=== PATIENT | male | born 2000 | race Two or more races ===

== ENCOUNTER 2023-09-28 11:31 | Inpatient (IN) | payer OTHER ==
[~2023-09-28] VITALS: Ht 198.1 cm; Wt 79.4 kg
--- NOTE | 2023-09-28 11:49 | NUR ---
SE RECIBE PTE ALERTA Y ORIENTADO X3. REFIERE FIEBRE HACE 4 HONG. PTE SE REALIZO CBC EN EL SYD DE HOY DONDE PRESENTA PLAQUETAS Y GLOBULOS BLANCOS BAJOS. SE MIDE SV Y SE UBICA
[2023-09-28] MEDS ORDERED: 0.9 % SODIUM CHLORIDE 1,000 ML IV STA (12:27)
[2023-09-28] MEDS ORDERED: METHYLPREDNISOLONE SOD SUCC 125 MG VIAL IV STA (12:27)
[2023-09-28] MEDS ORDERED: METHYLPREDNISOLONE SOD SUCC 125 MG VIAL ONE (12:44)
--- NOTE | 2023-09-28 12:46 | NUR ---
PTE EVALUADO POR EL DR. COLEMAN. RN MOHR ORIENTA SOBRE TRATAMIENTO, CANALIZA, CASSIA MUESTRAS DE LAB Y ADMINISTRA MEDICAMENTO EMBER ORDEN MEDICA BAJO MEDIDAS ASEPTICAS. PENDIENTE CONSULTA CON DR. JULIETA XAVIER.
[2023-09-28 13:22] LABS: HEMATOCRIT 41.1 % (39.0-48.0); HEMOGLOBIN 14.7 g/dL (13-16.00); MEAN CELL VOLUME 85.3 fL (80.0-100.00); MEAN CORPUSCULAR HEMOGLOBIN 30.5 pg (27.00-32.0); MEAN CORPUSCULAR HGB CONC 35.7 g/dl (32.0-36.0); RED BLOOD COUNT 4.81 M/uL (4.00-6.00); RED CELL DISTRIBUTION WIDTH 12.9 % (11.5-14.5)
[2023-09-28 13:26] LABS: PLATELET COUNT 84 K/uL (150-450)
[2023-09-28 13:32] LABS: INR 1.23; PARTIAL THROMBOPLASTIN TIME 34.6 SECONDS (22.0-34.0); PROTHROMBIN TIME 12.7 SECONDS (9.0-11.5)
[2023-09-28 13:34] LABS: CREATININE SERUM 1.27 mg/dL (0.70-1.30); GFR 70.28; POTASSIUM 3.83 mEq/L (3.5-5.1)
--- NOTE | 2023-09-28 15:32 | NUR ---
SE RECIBE PTE ALERTA Y ORIENTADO X3 EN OBS #7 PENDIENTE A CONSULTA CON MEDICINA INTERNA. VENOPUNCION PATENTE BAJANDO IV FLUIDS POR REGULADOR.
[2023-09-28 16:29] LABS: PH,URINE 6.5 (5.0-8.0); URINE APPEARANCE Clear; URINE BILIRRUBIN Negative (NEGATIVE); URINE BLOOD Negative; URINE COLOR Yellow; URINE GLUCOSE Negative (NEGATIVE); URINE LEUKOCYTE Negative; URINE NITRATE Negative; URINE PROTEIN Negative (NEGATIVE); URINE UROBILINOGEN 0.2 E.U./dl
[2023-09-28 16:30] LABS: URINE EPITHELIAL CELLS 2.6 uL (0.0-38.8); URINE RBC 3.6 uL (0.0-20.8)
[2023-09-28 16:35] LABS: URINE BACTERIA 2.5 uL (0.0-1933); URINE WBC 1.3 uL (0.0-23.2)
[2023-09-28] MEDS ORDERED: METHYLPREDNISOLONE SOD SUCC 40 MG VIAL IV SCH (19:43)
[2023-09-28] MEDS ORDERED: AZITHROMYCIN 500 MG in 0.9 % SODIUM CHLORIDE 250 ML IV SCH (19:43)
[2023-09-28] MEDS ORDERED: LORATADINE 10 MG TABLET PO SCH (19:44)
[2023-09-28] MEDS ORDERED: ACETAMINOPHEN 500 MG GEL..CAP PO PRN (19:45)
[2023-09-28] MEDS ORDERED: 0.9 % SODIUM CHLORIDE 1,000 ML IV SCH (19:45)
[2023-09-28] MEDS ORDERED: MEPERIDINE HCL/PF 25 MG/ML VIAL IM PRN (19:45)
[2023-09-28] MEDS ORDERED: ONDANSETRON HCL 4 MG in 0.9 % SODIUM CHLORIDE 50 ML IV PRN (19:45)
[2023-09-28] MEDS ORDERED: METHYLPREDNISOLONE SOD SUCC 40 MG VIAL ONE (20:30)
[2023-09-28] MEDS ORDERED: AZITHROMYCIN 500 MG VIAL IV ONE ×2 (20:31→20:50)
[2023-09-28] MEDS ORDERED: FAMOTIDINE/PF 20 MG in 0.9 % SODIUM CHLORIDE 8 ML IV PUSH SCH (21:00)
[2023-09-29 08:35] LABS: HEMATOCRIT 40.8 % (39.0-48.0); HEMOGLOBIN 14.5 g/dL (13-16.00); MEAN CELL VOLUME 85.2 fL (80.0-100.00); MEAN CORPUSCULAR HEMOGLOBIN 30.3 pg (27.00-32.0); MEAN CORPUSCULAR HGB CONC 35.6 g/dl (32.0-36.0); RED BLOOD COUNT 4.79 M/uL (4.00-6.00); RED CELL DISTRIBUTION WIDTH 13.4 % (11.5-14.5)
[2023-09-29 08:46] LABS: INR 1.22; PARTIAL THROMBOPLASTIN TIME 34.9 SECONDS (22.0-34.0); PROTHROMBIN TIME 12.6 SECONDS (9.0-11.5)
[2023-09-29] MEDS ORDERED: PANTOPRAZOLE SODIUM 40 MG in 0.9 % SODIUM CHLORIDE 8 ML IV PUSH SCH (09:00)
[2023-09-29 09:14] LABS: ERYTHROCYTE SEDIMENTATION RATE 8 mm/hr
[2023-09-29 09:16] LABS: PH,URINE 6.5 (5.0-8.0); URINE APPEARANCE Clear; URINE BILIRRUBIN Negative (NEGATIVE); URINE BLOOD Negative; URINE COLOR Yellow; URINE GLUCOSE Negative (NEGATIVE); URINE LEUKOCYTE Negative; URINE NITRATE Negative; URINE PROTEIN Negative (NEGATIVE); URINE UROBILINOGEN 0.2 E.U./dl
[2023-09-29 09:21] LABS: URINE EPITHELIAL CELLS 2.4 uL (0.0-38.8); URINE WBC 2.7 uL (0.0-23.2)
[2023-09-29 10:10] LABS: ALBUMIN 3.7 gm/dL (3.4-5.0); BILIRUBIN TOTAL 0.42 mg/dL (0.3-1.2); BILIRUBIN,CONJUGATED 0.12 mg/dL (0.0-0.2); BILIRUBIN,UNCONJUGATED 0.3 mg/dL (0.0-0.6); C-REACTIVE PROTEIN 1.13 MG/DL (0.00-0.29); CALCIUM 9.3 mg/dL (8.5-10.1); CREATININE SERUM 0.98 mg/dL (0.70-1.30); GFR 94.78; GLOBULINA 3.2 G/DL (2.4-3.5); POTASSIUM 5.42 mEq/L (3.5-5.1); TOTAL PROTEIN 6.9 gm/dL (6.4-8.2)
[2023-09-29 12:21] LABS: PLATELET COUNT 83 K/uL (150-450)
[2023-09-29] MEDS ORDERED: PANTOPRAZOLE SODIUM 40 MG/VIAL VIAL ONE (13:07)
[2023-09-30 07:40] LABS: HEMATOCRIT 38.3 % (39.0-48.0); HEMOGLOBIN 13.7 g/dL (13-16.00); MEAN CELL VOLUME 84.9 fL (80.0-100.00); MEAN CORPUSCULAR HEMOGLOBIN 30.4 pg (27.00-32.0); MEAN CORPUSCULAR HGB CONC 35.8 g/dl (32.0-36.0); RED BLOOD COUNT 4.51 M/uL (4.00-6.00); RED CELL DISTRIBUTION WIDTH 13.1 % (11.5-14.5)
[2023-09-30 07:45] LABS: PLATELET COUNT 93 K/uL (150-450)
[2023-09-30] MEDS ORDERED: ZITHROMAX500 MG PO (12:03)
[2023-09-30] MEDS ORDERED: PROTONIX40 MG PO (12:03)
== END 2023-09-30 13:02 | disposition home or self-care (01) | DRG 866 ==
LOC: ER 11:33 → MEDI 19:51
PROVIDERS: General Practice; ADMIT Internal Medicine; ATTEND Internal Medicine
DX: A90 Dengue fever [classical dengue] (principal); D69.6 Thrombocytopenia, unspecified; D72.818 Other decreased white blood cell count; B34.9 Viral infection, unspecified; B96.0 Mycoplasma pneumoniae [M. pneumoniae] as the cause of diseases classified elsewhere

== ENCOUNTER 2024-04-27 07:11 | Emergency (ER) | payer OTHER ==
[~2024-04-27] VITALS: Ht 195.6 cm; Wt 79.4 kg
[~2024-04-27 07:11] MED LIST: PROTONIX40 MG PO; ZITHROMAX500 MG PO
== END 2024-04-27 11:17 | disposition home or self-care (01) ==
LOC: ER 07:13
DX: S00.93XA Contusion of unspecified part of head, initial encounter (principal); X58.XXXA Exposure to other specified factors, initial encounter; Y93.89 Activity, other specified; Y92.89 Other specified places as the place of occurrence of the external cause; Y99.9 Unspecified external cause status; Z91.013 Allergy to seafood